=== PATIENT | female | born 1960 | race Caucasian/White ===

== ENCOUNTER 2021-08-09 10:42 | Inpatient (IN) | payer MEDICARE, OTHER ==
--- NOTE | 2021-08-09 11:04 | EDM.PDOC ---
ED HPI GENERAL MEDICAL PROBLEM - General Chief Complaint: Respiratory Problem Time Seen by Provider: 08/09/21 11:00 Source of Information: Reports: Patient History Limitations: Reports: No Limitations - History of Present Illness INITIAL COMMENTS - FREE TEXT/NARRATIVE: This is a 61-year-old female patient that presents to the emergency department with complaints of shortness of breath, weakness, fatigue, and body aches. Patient states that symptoms are very similar to when she had Covid several months ago. Denies nausea or vomiting. States her symptoms began about a week ago. She came up to [place] visiting family for [place]. Denies fever or chills. Denies any sort of chest pain or diaphoresis. - Related Data Allergies Allergy/AdvReac Type Severity Reaction Status Date / Time Penicillins Allergy Itching Verified 08/09/21 10:53 Home Meds: Home Meds Ascorbic Acid [Vitamin C] 2,000 mg PO BID 08/09/21 [History] Aspirin [Aspirin EC] 81 mg PO DAILY 08/09/21 [History] Canagliflozin [Invokana] 100 mg PO DAILY 08/09/21 [History] Cholecalciferol (Vitamin D3) [Vitamin D] 5,000 unit PO Q48H 08/09/21 [History] Cyanocobalamin (Vitamin B12) [Vitamin B12] 1,000 mcg PO DAILY 08/09/21 [History] Insulin Lispro Prot/Lispro [HumaLOG Mix 75-25] 20 unit SUBCUT BID 08/09/21 [History] Loratadine [Claritin] 10 mg PO DAILY 08/09/21 [History] Losartan [Cozaar] 100 mg PO DAILY 08/09/21 [History] Lovastatin 20 mg PO DAILY 08/09/21 [History] Multivitamin 1 each PO DAILY 08/09/21 [History] Mv-Mn/FA/Bl Coh/Isoflav/Jujube [Estroven Menopause Caplet] 1 each PO DAILY 08/09/21 [History] NIFEdipine [Nifedipine ER] 90 mg PO DAILY 08/09/21 [History] Topiramate 100 mg PO DAILY 08/09/21 [History] carvediloL [Carvedilol] 25 mg PO BID 08/09/21 [History] hydrALAZINE [Apresoline] 50 mg PO BID 08/09/21 [History] hydroCHLOROthiazide [Hydrochlorothiazide] 12.5 mg PO Q48H 08/09/21 [History] ED ROS GENERAL - Review of Systems Review Of Systems: See Below Constitutional: Reports: Weakness, Fatigue HEENT: Reports: Sinus Problem (Chronic sinus drainage at night) Respiratory: Reports: Shortness of Breath, Cough. Denies: Wheezing Cardiovascular: Reports: Dyspnea on Exertion. Denies: Chest Pain, Blood Pressure Problem, Lightheadedness Endocrine: Reports: No Symptoms GI/Abdominal: Denies: Abdominal Pain, Nausea, Vomiting : Reports: No Symptoms Musculoskeletal: Reports: No Symptoms Skin: Denies: Cyanosis Neurological: Denies: Confusion, Dizziness, Trouble Speaking Psychiatric: Reports: No Symptoms Hematologic/Lymphatic: Reports: No Symptoms Immunologic: Reports: No Symptoms ED EXAM, GENERAL - Physical Exam Exam: See Below Exam Limited By: No Limitations General Appearance: Alert, WD/WN, No Apparent Distress Ears: Normal External Exam, Hearing Grossly Normal Nose: Normal Inspection, Normal Mucosa Throat/Mouth: Normal Voice, No Airway Compromise Head: Atraumatic, Normocephalic Neck: Normal Inspection, Supple, Non-Tender. No: Lymphadenopathy (L), Lymphadenopathy (R) Respiratory/Chest: No Respiratory Distress, Lungs Clear, Decreased Breath Sounds Cardiovascular: Regular Rate, Rhythm, No Gallop, No Murmur, No Rub GI/Abdominal: Soft, Non-Tender (Female) Exam: Deferred Rectal (Female) Exam: Deferred Back Exam: Normal Inspection Extremities: No Pedal Edema Neurological: Alert, Oriented Psychiatric: Normal Affect, Normal Mood Skin Exam: Warm, Dry, Intact, No Rash Lymphatic: No Adenopathy Course - Vital Signs Last Recorded V/S: Last Vital Signs Temp 97.0 F 08/09/21 10:45 Pulse 56 L 08/09/21 10:45 Resp 16 08/09/21 10:45 BP 133/56 L 08/09/21 10:45 Pulse Ox 96 08/09/21 10:45 - Orders/Labs/Meds Orders: Active Orders 24 hr Category Date Time Status Chest 2V [CR] Stat Exams 08/09/21 10:54 Taken Labs: Laboratory Tests 08/09/21 08/09/21 08/09/21 Range/Units 10:46 11:20 11:20 WBC 10.9 (4.0-11.0) 10^3/uL RBC 3.67 L (4.00-5.50) x10^6/uL Hgb 10.3 L (12.0-16.0) g/dL Hct 32.2 L (37.0-47.0) % MCV 87.7 (83.0-97.0) fL MCH 28.1 (27.0-32.0) pg MCHC 32.0 (32.0-36.0) g/dL RDW Coeff of Roger 15.0 (11.0-15.0) % Plt Count 304 (150-400) 10^3/uL Immature Gran % (Auto) 0.3 (0.0-4.9) % Neut % (Auto) 81.5 H (41-71) % Lymph % (Auto) 8.2 L (24-44) % Solano % (Auto) 6.3 (0-10) % Eos % (Auto) 3.2 (0-6) % Baso % (Auto) 0.5 (0-1) % Neut # (Auto) 8.88 H (1.80-8.00) x10^3/uL Lymph # (Auto) 0.89 (0.60-5.00) 10^3/uL Sol[place] # (Auto) 0.69 (0.00-1.50) 10^3/uL Eos # (Auto) 0.35 (0.00-1.50) 10^3/uL Baso # (Auto) 0.05 (0.00-0.50) 10^3/uL Immature Gran # (Auto) 0.03 (0.00-0.49) 10^3/uL D-Dimer, Quantitative 2.39 H (0.00-0.50) Sodium (136-145) mEq/L Potassium (3.5-5.0) mEq/L Chloride (98-106) mEq/L Carbon Dioxide (21-32) mmol/L BUN (7-18) mg/dL Creatinine (0.6-1.0) mg/dL Est Cr Clr Drug Dosing mL/min Estimated GFR (MDRD) (>=60) mL/min Glucose (75-99) mg/dL Calcium (8.4-10.1) mg/dL Total Bilirubin (0.0-1.0) mg/dL AST (15-37) U/L ALT (12-78) U/L Alkaline Phosphatase (46-116) U/L Troponin I High Sens (<=51) pg/mL NT-Pro-B Natriuret Pep (0-1000) pg/mL Total Protein (6.4-8.2) g/dL Albumin (3.4-5.0) g/dL SARS CoV-2 RNA Rapid KRISS Negative (NEGATIVE) 08/09/21 Range/Units 11:20 WBC (4.0-11.0) 10^3/uL RBC (4.00-5.50) x10^6/uL Hgb (12.0-16.0) g/dL Hct (37.0-47.0) % MCV (83.0-97.0) fL MCH (27.0-32.0) pg MCHC (32.0-36.0) g/dL RDW Coeff of Roger (11.0-15.0) % Plt Count (150-400) 10^3/uL Immature Gran % (Auto) (0.0-4.9) % Neut % (Auto) (41-71) % Lymph % (Auto) (24-44) % [place] % (Auto) (0-10) % Eos % (Auto) (0-6) % Baso % (Auto) (0-1) % Neut # (Auto) (1.80-8.00) x10^3/uL Lymph # (Auto) (0.60-5.00) 10^3/uL [place] # (Auto) (0.00-1.50) 10^3/uL Eos # (Auto) (0.00-1.50) 10^3/uL Baso # (Auto) (0.00-0.50) 10^3/uL Immature Gran # (Auto) (0.00-0.49) 10^3/uL D-Dimer, Quantitative (0.00-0.50) Sodium 140 (136-145) mEq/L Potassium 3.9 (3.5-5.0) mEq/L Chloride 105 (98-106) mEq/L Carbon Dioxide 24 (21-32) mmol/L BUN 94 H* (7-18) mg/dL Creatinine 2.7 H* (0.6-1.0) mg/dL Est Cr Clr Drug Dosing 20.74 mL/min Estimated GFR (MDRD) 18 L (>=60) mL/min Glucose 175 H (75-99) mg/dL Calcium 8.6 (8.4-10.1) mg/dL Total Bilirubin 0.5 (0.0-1.0) mg/dL AST 19 (15-37) U/L ALT 32 (12-78) U/L Alkaline Phosphatase 88 (46-116) U/L Troponin I High Sens 17.3 (<=51) pg/mL NT-Pro-B Natriuret Pep 8229 H (0-1000) pg/mL Total Protein 6.9 (6.4-8.2) g/dL Albumin 2.8 L (3.4-5.0) g/dL SARS CoV-2 RNA Rapid KRISS (NEGATIVE) - Re-Assessments/Exams Free Text/Narrative Re-Assessment/Exam: Patient presented to the emergency department with complaints of shortness of breath, body aches, and weakness. Patient described this as similar to having Covid months ago. Obtained a Covid and influenza swab that are negative. Chest x-ray was complete which was reviewed, no evidence of acute findings. CBC, CMP, CRP, D-Dimer, BNP, and troponin completed. CBC unremarkable. Creatinine 2.7. BNP 8229. D-Dimer 2.39, Troponin 17.3. Discussed findings with patient. Patient likely with CHF. With the D-dimer and creatinine levels being elevated a PE cannot be completely ruled out and unable to perform a CTA of the chest. Patient lives in [place], [place] and wanted to drive back today. Discussion with patient and spouse included option of admission for CHF and prophylactic treatment of unknown PE. Informed that she had the right to sign out AMA and return to [place]. Risk discussed with patient that included possible acute emergency and possible if chose to drive back to [place]. Patient and spouse have chose to remain in [place]. Tertiary hospitals are not able to accept patient. Spoke with Dr. Dixon hospitalist in [facility] and stated she would need to be evaluated in the ER at [facility] if she signed out AMA. Discussed case with hospitalist at [facility] regarding hospital treatment and management. Based on those recommendation patient will be admitted for acute care inpatient telemetry. Will start diaphoresis with 40 mg Lasix IV BID. Will also treat potential PE with IV heparin bolus and drip. Will recheck labs daily monitoring CBC, BMP, Troponin, and BNP. Will monitor closely for any changes. Departure - Departure Time of Disposition: 13:00 Disposition: Admitted As Inpatient 67 Condition: Poor Clinical Impression: SOB (shortness of breath), Exertional dyspnea CHF (congestive heart failure) Qualifiers: Heart failure type: unspecified Heart failure chronicity: unspecified Qualified Code(s): I50.9 - Heart failure, unspecified Chronic kidney disease (CKD) Qualifiers: Chronic kidney disease stage: unspecified stage Qualified Code(s): N18.9 - Chronic kidney disease, unspecified - Discharge Information *PRESCRIPTION DRUG MONITORING PROGRAM REVIEWED*: Not Applicable *COPY OF PRESCRIPTION DRUG MONITORING REPORT IN PATIENT ILYA: Not Applicable Forms: ED Department Discharge Additional Instructions: Admit inpatient telemetry. Sepsis Event Note (ED) - Evaluation Sepsis Screening Result: No Definite Risk - Focused Exam Vital Signs: Vital Signs Temp Pulse Resp BP Pulse Ox 08/09/21 10:45 97.0 F 56 L 16 133/56 L 96 - Problem List Review Problem List Initiated/Reviewed/Updated: Yes - Assessment/Plan Admission H&P: Please use this note as an admission H&P
[2021-08-09] MEDS ORDERED: Ondansetron 4 MG/2 ML SDV IV PRN (14:12)
[2021-08-09] MEDS ORDERED: Acetaminophen 325 MG Tab PO PRN (14:12)
[2021-08-09] MEDS: Furosemide 40 MG/4 ML VIAL IVPUSH SCH ×2 (14:41→19:54)
[2021-08-09] MEDS: Heparin Sodium/0.45% NaCl 500 ML IV SCH (15:04)
[2021-08-09] MEDS ORDERED: Carvedilol 12.5 MG Tab PO SCH (17:30)
[2021-08-09] MEDS: Insulin NPH HUM/REG Insulin HM 100 UNIT/ML 3 ML Vial SQ SCH (17:38)
[2021-08-09] MEDS: hydrALAZINE 25 MG Tab PO SCH (19:54)
[2021-08-09] MEDS ORDERED: Heparin Sodium 5,000 Units/ML Vial IV ONE (23:45)
[2021-08-10] MEDS: Heparin Sodium/0.45% NaCl 500 ML IV SCH ×2 (05:12→21:53)
[2021-08-10] MEDS: Topiramate 100 MG Tab PO SCH (07:40)
[2021-08-10] MEDS: Furosemide 40 MG/4 ML VIAL IVPUSH SCH ×2 (07:40→19:10)
[2021-08-10] MEDS: Aspirin 81 MG Tab.EC PO SCH (07:41)
[2021-08-10] MEDS: hydrALAZINE 25 MG Tab PO SCH ×2 (07:42→19:10)
[2021-08-10] MEDS: Losartan 100 MG Tab PO SCH (07:42)
[2021-08-10] MEDS: Simvastatin 10 MG Tab PO SCH (07:42)
[2021-08-10] MEDS: NIFEdipine 30 MG Tab.ER PO SCH (07:43)
[2021-08-10] MEDS: Insulin NPH HUM/REG Insulin HM 100 UNIT/ML 3 ML Vial SQ SCH ×2 (07:45→17:29)
[2021-08-10] MEDS ORDERED: Non-Formulary Medication 1 Each (Canagliflozin [Invokana] 100 MG Tablet) PO SCH (08:00)
--- NOTE | 2021-08-10 11:12 | PCM.PN ---
- General Info Date of Service: 08/10/21 Admission Dx/Problem (Free Text): Acute on chronic congestive heart failure Elevated D-Dimer with shortness of breath Type II DM Acute on chronic kidney injury\\ Subjective Update: Patient resting comfortably up in recliner. Feels "a bit less short of breath today". Is down 4# today from yesterday. Is voiding well, states up to the bathroom about every 45 minutes. Has not had much for edema, does not feel that has changed today. Appetite is good. Denies cough, fever, nausea or vomiting. Blood sugars have been stable. Has consistently been in marked sinus terrence since admission in the 40s, concern with possible 2nd degree heart block. pat ient unaware if has every had a diagnosis of atrial fib but reports has been told her heart is irregular. Not on any blood thinners. Denies any lightheadedness or dizziness. Blood pressure 160s/60s. Unsure of when last echo. "don't keep track of all that and don't understand all the medical jar jacky". Does admit that she sees a kidney specialist but is unsure what her usual creatinine is. Functional Status: Reports: Pain Controlled, Tolerating Diet, Ambulating - Review of Systems General: Reports: Fatigue. Denies: Fever, Weakness, Malaise HEENT: Denies: Ear Pain, Sinus Congestion, Rhinitis Pulmonary: Reports: Shortness of Breath. Denies: Cough Cardiovascular: Reports: Edema. Denies: Chest Pain, Lightheadedness Gastrointestinal: Denies: Abdominal Pain, Decreased Appetite, Nausea, Vomiting Genitourinary: Reports: Frequency Musculoskeletal: Reports: No Symptoms Skin: Reports: No Symptoms Neurological: Reports: Weakness - Patient Data Vitals - Most Recent: Last Vital Signs Temp 97.9 F 08/10/21 08:00 Pulse 41 L 08/10/21 04:00 Resp 16 08/10/21 08:00 BP 163/66 H 08/10/21 08:00 Pulse Ox 95 08/10/21 08:00 Weight - Most Recent: 314 lb 3.2 oz I&O - Last 24 Hours: Intake & Output 08/09/21 08/10/21 08/10/21 22:59 06:59 14:59 Intake Total 1500 867 Output Total 550 900 Balance 950 -33 Lab Results Last 24 Hours: Laboratory Results - last 24 hr 08/09/21 08/09/21 08/09/21 Range/Units 11:20 11:20 11:20 WBC 10.9 (4.0-11.0) 10^3/uL RBC 3.67 L (4.00-5.50) x10^6/uL Hgb 10.3 L (12.0-16.0) g/dL Hct 32.2 L (37.0-47.0) % MCV 87.7 (83.0-97.0) fL MCH 28.1 (27.0-32.0) pg MCHC 32.0 (32.0-36.0) g/dL RDW Coeff of Roger 15.0 (11.0-15.0) % Plt Count 304 (150-400) 10^3/uL MPV fL Immature Gran % (Auto) 0.3 (0.0-4.9) % Neut % (Auto) 81.5 H (41-71) % Lymph % (Auto) 8.2 L (24-44) % [place] % (Auto) 6.3 (0-10) % Eos % (Auto) 3.2 (0-6) % Baso % (Auto) 0.5 (0-1) % Neut # (Auto) 8.88 H (1.80-8.00) x10^3/uL Lymph # (Auto) 0.89 (0.60-5.00) 10^3/uL [place] # (Auto) 0.69 (0.00-1.50) 10^3/uL Eos # (Auto) 0.35 (0.00-1.50) 10^3/uL Baso # (Auto) 0.05 (0.00-0.50) 10^3/uL Immature Gran # (Auto) 0.03 (0.00-0.49) 10^3/uL APTT (23.2-32.3) SEC D-Dimer, Quantitative 2.39 H (0.00-0.50) Sodium 140 (136-145) mEq/L Potassium 3.9 (3.5-5.0) mEq/L Chloride 105 (98-106) mEq/L Carbon Dioxide 24 (21-32) mmol/L BUN 94 H* (7-18) mg/dL Creatinine 2.7 H* (0.6-1.0) mg/dL Est Cr Clr Drug Dosing 20.74 mL/min Estimated GFR (MDRD) 18 L (>=60) mL/min Glucose 175 H (75-99) mg/dL POC Glucose (75-105) mg/dL Calcium 8.6 (8.4-10.1) mg/dL Total Bilirubin 0.5 (0.0-1.0) mg/dL AST 19 (15-37) U/L ALT 32 (12-78) U/L Alkaline Phosphatase 88 (46-116) U/L Troponin I High Sens 17.3 (<=51) pg/mL NT-Pro-B Natriuret Pep 8229 H (0-1000) pg/mL Total Protein 6.9 (6.4-8.2) g/dL Albumin 2.8 L (3.4-5.0) g/dL 08/09/21 08/09/21 08/09/21 Range/Units 14:12 14:12 17:16 WBC (4.0-11.0) 10^3/uL RBC (4.00-5.50) x10^6/uL Hgb (12.0-16.0) g/dL Hct (37.0-47.0) % MCV (83.0-97.0) fL MCH (27.0-32.0) pg MCHC (32.0-36.0) g/dL RDW Coeff of Roger (11.0-15.0) % Plt Count (150-400) 10^3/uL MPV fL Immature Gran % (Auto) (0.0-4.9) % Neut % (Auto) (41-71) % Lymph % (Auto) (24-44) % [place] % (Auto) (0-10) % Eos % (Auto) (0-6) % Baso % (Auto) (0-1) % Neut # (Auto) (1.80-8.00) x10^3/uL Lymph # (Auto) (0.60-5.00) 10^3/uL [place] # (Auto) (0.00-1.50) 10^3/uL Eos # (Auto) (0.00-1.50) 10^3/uL Baso # (Auto) (0.00-0.50) 10^3/uL Immature Gran # (Auto) (0.00-0.49) 10^3/uL APTT 25.6 (23.2-32.3) SEC D-Dimer, Quantitative (0.00-0.50) Sodium (136-145) mEq/L Potassium (3.5-5.0) mEq/L Chloride (98-106) mEq/L Carbon Dioxide (21-32) mmol/L BUN (7-18) mg/dL Creatinine (0.6-1.0) mg/dL Est Cr Clr Drug Dosing mL/min Estimated GFR (MDRD) (>=60) mL/min Glucose (75-99) mg/dL POC Glucose 120 H (75-105) mg/dL Calcium (8.4-10.1) mg/dL Total Bilirubin (0.0-1.0) mg/dL AST (15-37) U/L ALT (12-78) U/L Alkaline Phosphatase (46-116) U/L Troponin I High Sens 16.7 (<=51) pg/mL NT-Pro-B Natriuret Pep (0-1000) pg/mL Total Protein (6.4-8.2) g/dL Albumin (3.4-5.0) g/dL 08/09/21 08/09/21 08/10/21 Range/Units 21:00 23:53 03:00 WBC (4.0-11.0) 10^3/uL RBC (4.00-5.50) x10^6/uL Hgb (12.0-16.0) g/dL Hct (37.0-47.0) % MCV (83.0-97.0) fL MCH (27.0-32.0) pg MCHC (32.0-36.0) g/dL RDW Coeff of Roger (11.0-15.0) % Plt Count (150-400) 10^3/uL MPV fL Immature Gran % (Auto) (0.0-4.9) % Neut % (Auto) (41-71) % Lymph % (Auto) (24-44) % [place] % (Auto) (0-10) % Eos % (Auto) (0-6) % Baso % (Auto) (0-1) % Neut # (Auto) (1.80-8.00) x10^3/uL Lymph # (Auto) (0.60-5.00) 10^3/uL [place] # (Auto) (0.00-1.50) 10^3/uL Eos # (Auto) (0.00-1.50) 10^3/uL Baso # (Auto) (0.00-0.50) 10^3/uL Immature Gran # (Auto) (0.00-0.49) 10^3/uL APTT 34.4 H 42.6 H (23.2-32.3) SEC D-Dimer, Quantitative (0.00-0.50) Sodium (136-145) mEq/L Potassium (3.5-5.0) mEq/L Chloride (98-106) mEq/L Carbon Dioxide (21-32) mmol/L BUN (7-18) mg/dL Creatinine (0.6-1.0) mg/dL Est Cr Clr Drug Dosing mL/min Estimated GFR (MDRD) (>=60) mL/min Glucose (75-99) mg/dL POC Glucose 108 H (75-105) mg/dL Calcium (8.4-10.1) mg/dL Total Bilirubin (0.0-1.0) mg/dL AST (15-37) U/L ALT (12-78) U/L Alkaline Phosphatase (46-116) U/L Troponin I High Sens (<=51) pg/mL NT-Pro-B Natriuret Pep (0-1000) pg/mL Total Protein (6.4-8.2) g/dL Albumin (3.4-5.0) g/dL 08/10/21 08/10/21 08/10/21 Range/Units 07:39 09:28 09:28 WBC 9.4 (4.0-11.0) 10^3/uL RBC 3.77 L (4.00-5.50) x10^6/uL Hgb 10.6 L (12.0-16.0) g/dL Hct 33.1 L (37.0-47.0) % MCV 87.8 (83.0-97.0) fL MCH 28.1 (27.0-32.0) pg MCHC 32.0 (32.0-36.0) g/dL RDW Coeff of Roger 15.1 H (11.0-15.0) % Plt Count 350 (150-400) 10^3/uL MPV 9.1 fL Immature Gran % (Auto) (0.0-4.9) % Neut % (Auto) (41-71) % Lymph % (Auto) (24-44) % [place] % (Auto) (0-10) % Eos % (Auto) (0-6) % Baso % (Auto) (0-1) % Neut # (Auto) (1.80-8.00) x10^3/uL Lymph # (Auto) (0.60-5.00) 10^3/uL [place] # (Auto) (0.00-1.50) 10^3/uL Eos # (Auto) (0.00-1.50) 10^3/uL Baso # (Auto) (0.00-0.50) 10^3/uL Immature Gran # (Auto) (0.00-0.49) 10^3/uL APTT (23.2-32.3) SEC D-Dimer, Quantitative (0.00-0.50) Sodium 142 (136-145) mEq/L Potassium 3.6 (3.5-5.0) mEq/L Chloride 106 (98-106) mEq/L Carbon Dioxide 26 (21-32) mmol/L BUN 86 H* (7-18) mg/dL Creatinine 2.4 H (0.6-1.0) mg/dL Est Cr Clr Drug Dosing 23.34 mL/min Estimated GFR (MDRD) 21 L (>=60) mL/min Glucose 138 H (75-99) mg/dL POC Glucose 99 (75-105) mg/dL Calcium 8.6 (8.4-10.1) mg/dL Total Bilirubin (0.0-1.0) mg/dL AST (15-37) U/L ALT (12-78) U/L Alkaline Phosphatase (46-116) U/L Troponin I High Sens (<=51) pg/mL NT-Pro-B Natriuret Pep 6712 H (0-1000) pg/mL Total Protein (6.4-8.2) g/dL Albumin (3.4-5.0) g/dL 08/10/21 Range/Units 09:28 WBC (4.0-11.0) 10^3/uL RBC (4.00-5.50) x10^6/uL Hgb (12.0-16.0) g/dL Hct (37.0-47.0) % MCV (83.0-97.0) fL MCH (27.0-32.0) pg MCHC (32.0-36.0) g/dL RDW Coeff of Roger (11.0-15.0) % Plt Count (150-400) 10^3/uL MPV fL Immature Gran % (Auto) (0.0-4.9) % Neut % (Auto) (41-71) % Lymph % (Auto) (24-44) % [place] % (Auto) (0-10) % Eos % (Auto) (0-6) % Baso % (Auto) (0-1) % Neut # (Auto) (1.80-8.00) x10^3/uL Lymph # (Auto) (0.60-5.00) 10^3/uL [place] # (Auto) (0.00-1.50) 10^3/uL Eos # (Auto) (0.00-1.50) 10^3/uL Baso # (Auto) (0.00-0.50) 10^3/uL Immature Gran # (Auto) (0.00-0.49) 10^3/uL APTT 43.2 H (23.2-32.3) SEC D-Dimer, Quantitative (0.00-0.50) Sodium (136-145) mEq/L Potassium (3.5-5.0) mEq/L Chloride (98-106) mEq/L Carbon Dioxide (21-32) mmol/L BUN (7-18) mg/dL Creatinine (0.6-1.0) mg/dL Est Cr Clr Drug Dosing mL/min Estimated GFR (MDRD) (>=60) mL/min Glucose (75-99) mg/dL POC Glucose (75-105) mg/dL Calcium (8.4-10.1) mg/dL Total Bilirubin (0.0-1.0) mg/dL AST (15-37) U/L ALT (12-78) U/L Alkaline Phosphatase (46-116) U/L Troponin I High Sens (<=51) pg/mL NT-Pro-B Natriuret Pep (0-1000) pg/mL Total Protein (6.4-8.2) g/dL Albumin (3.4-5.0) g/dL Nelson Results Last 24 Hours: Microbiology 08/09/21 10:47 Influenza Type A Antigen Screen - Final Nasopharyngeal Swab NEGATIVE INFLUENZA A VIRUS AG REFERENCE RANGE: NEGATIVE Influenza Type B Antigen Screen - Final NEGATIVE INFLUENZA B VIRUS AG REFERENCE RANGE: NEGATIVE Med Orders - Current: Current Medications Acetaminophen (Acetaminophen 325 Mg Tab) 650 mg PO Q4H PRN PRN Reason: Pain (Mild 1-3)/fever Aspirin (Aspirin 81 Mg Tab.Ec) 81 mg PO DAILY [facility] Last Admin: 08/10/21 07:41 Dose: 81 mg Documented by: Carvedilol (Carvedilol 12.5 Mg Tab) 12.5 mg PO BIDAC [facility] Last Admin: 08/09/21 17:41 Dose: Not Given Documented by: Furosemide (Furosemide 40 Mg/4 Ml Vial) 40 mg IVPUSH BID [facility] Last Admin: 08/10/21 07:40 Dose: 40 mg Documented by: Hydralazine HCl (Hydralazine 25 Mg Tab) 50 mg PO BID [facility] Last Admin: 08/10/21 07:42 Dose: 50 mg Documented by: Heparin Sodium/Sodium Chloride (Heparin 25,000 Units In 1/2 Ns 500 Ml) 500 mls @ 26 mls/hr IV TITRATE [facility]; Protocol Last Admin: 08/10/21 05:12 Dose: 32 mls/hr Documented by: Insulin NPH Beef/Pork (Insulin Nph Hum/Reg Insulin Hm 100 Unit/Ml 3 Ml Vial) 20 unit SQ 0800,1730 [facility] Last Admin: 08/10/21 07:45 Dose: 20 unit Documented by: Losartan Potassium (Losartan 100 Mg Tab) 100 mg PO DAILY [facility] Last Admin: 08/10/21 07:42 Dose: 100 mg Documented by: Nifedipine (Nifedipine 30 Mg Tab.Er) 90 mg PO DAILY [facility] Last Admin: 08/10/21 07:43 Dose: 90 mg Documented by: Non-Formulary Medication (Canagliflozin [Invokana]) 100 mg PO DAILY [facility] Ondansetron HCl (Ondansetron 4 Mg/2 Ml Sdv) 4 mg IV Q6H PRN PRN Reason: Nausea/Vomiting Simvastatin (Simvastatin 10 Mg Tab) 10 mg PO DAILY [facility] Last Admin: 08/10/21 07:42 Dose: 10 mg Documented by: Topiramate (Topiramate 100 Mg Tab) 100 mg PO DAILY [facility] Last Admin: 08/10/21 07:40 Dose: 100 mg Documented by: Discontinued Medications Heparin Sodium (Porcine) (Heparin Sodium 5,000 Units/Ml Vial) 1,500 units IV ONETIME ONE Stop: 08/09/21 23:46 Last Admin: 08/10/21 00:52 Dose: Not Given Documented by: - Exam General: Alert, Oriented, Cooperative HEENT: Mucous Membr. 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, see pictures) Neurological: No New Focal Deficit - Patient Data Lab Results Last 24 hrs: Laboratory Results - last 24 hr 08/09/21 08/09/21 08/09/21 Range/Units 11:20 11:20 11:20 WBC 10.9 (4.0-11.0) 10^3/uL RBC 3.67 L (4.00-5.50) x10^6/uL Hgb 10.3 L (12.0-16.0) g/dL Hct 32.2 L (37.0-47.0) % MCV 87.7 (83.0-97.0) fL MCH 28.1 (27.0-32.0) pg MCHC 32.0 (32.0-36.0) g/dL RDW Coeff of Roger 15.0 (11.0-15.0) % Plt Count 304 (150-400) 10^3/uL MPV fL Immature Gran % (Auto) 0.3 (0.0-4.9) % Neut % (Auto) 81.5 H (41-71) % Lymph % (Auto) 8.2 L (24-44) % [place] % (Auto) 6.3 (0-10) % Eos % (Auto) 3.2 (0-6) % Baso % (Auto) 0.5 (0-1) % Neut # (Auto) 8.88 H (1.80-8.00) x10^3/uL Lymph # (Auto) 0.89 (0.60-5.00) 10^3/uL [place] # (Auto) 0.69 (0.00-1.50) 10^3/uL Eos # (Auto) 0.35 (0.00-1.50) 10^3/uL Baso # (Auto) 0.05 (0.00-0.50) 10^3/uL Immature Gran # (Auto) 0.03 (0.00-0.49) 10^3/uL APTT (23.2-32.3) SEC D-Dimer, Quantitative 2.39 H (0.00-0.50) Sodium 140 (136-145) mEq/L Potassium 3.9 (3.5-5.0) mEq/L Chloride 105 (98-106) mEq/L Carbon Dioxide 24 (21-32) mmol/L BUN 94 H* (7-18) mg/dL Creatinine 2.7 H* (0.6-1.0) mg/dL Est Cr Clr Drug Dosing 20.74 mL/min Estimated GFR (MDRD) 18 L (>=60) mL/min Glucose 175 H (75-99) mg/dL POC Glucose (75-105) mg/dL Calcium 8.6 (8.4-10.1) mg/dL Total Bilirubin 0.5 (0.0-1.0) mg/dL AST 19 (15-37) U/L ALT 32 (12-78) U/L Alkaline Phosphatase 88 (46-116) U/L Troponin I High Sens 17.3 (<=51) pg/mL NT-Pro-B Natriuret Pep 8229 H (0-1000) pg/mL Total Protein 6.9 (6.4-8.2) g/dL Albumin 2.8 L (3.4-5.0) g/dL 08/09/21 08/09/21 08/09/21 Range/Units 14:12 14:12 17:16 WBC (4.0-11.0) 10^3/uL RBC (4.00-5.50) x10^6/uL Hgb (12.0-16.0) g/dL Hct (37.0-47.0) % MCV (83.0-97.0) fL MCH (27.0-32.0) pg MCHC (32.0-36.0) g/dL RDW Coeff of Roger (11.0-15.0) % Plt Count (150-400) 10^3/uL MPV fL Immature Gran % (Auto) (0.0-4.9) % Neut % (Auto) (41-71) % Lymph % (Auto) (24-44) % [place] % (Auto) (0-10) % Eos % (Auto) (0-6) % Baso % (Auto) (0-1) % Neut # (Auto) (1.80-8.00) x10^3/uL Lymph # (Auto) (0.60-5.00) 10^3/uL [place] # (Auto) (0.00-1.50) 10^3/uL Eos # (Auto) (0.00-1.50) 10^3/uL Baso # (Auto) (0.00-0.50) 10^3/uL Immature Gran # (Auto) (0.00-0.49) 10^3/uL APTT 25.6 (23.2-32.3) SEC D-Dimer, Quantitative (0.00-0.50) Sodium (136-145) mEq/L Potassium (3.5-5.0) mEq/L Chloride (98-106) mEq/L Carbon Dioxide (21-32) mmol/L BUN (7-18) mg/dL Creatinine (0.6-1.0) mg/dL Est Cr Clr Drug Dosing mL/min Estimated GFR (MDRD) (>=60) mL/min Glucose (75-99) mg/dL POC Glucose 120 H (75-105) mg/dL Calcium (8.4-10.1) mg/dL Total Bilirubin (0.0-1.0) mg/dL AST (15-37) U/L ALT (12-78) U/L Alkaline Phosphatase (46-116) U/L Troponin I High Sens 16.7 (<=51) pg/mL NT-Pro-B Natriuret Pep (0-1000) pg/mL Total Protein (6.4-8.2) g/dL Albumin (3.4-5.0) g/dL 08/09/21 08/09/21 08/10/21 Range/Units 21:00 23:53 03:00 WBC (4.0-11.0) 10^3/uL RBC (4.00-5.50) x10^6/uL Hgb (12.0-16.0) g/dL Hct (37.0-47.0) % MCV (83.0-97.0) fL MCH (27.0-32.0) pg MCHC (32.0-36.0) g/dL RDW Coeff of Roger (11.0-15.0) % Plt Count (150-400) 10^3/uL MPV fL Immature Gran % (Auto) (0.0-4.9) % Neut % (Auto) (41-71) % Lymph % (Auto) (24-44) % [place] % (Auto) (0-10) % Eos % (Auto) (0-6) % Baso % (Auto) (0-1) % Neut # (Auto) (1.80-8.00) x10^3/uL Lymph # (Auto) (0.60-5.00) 10^3/uL [place] # (Auto) (0.00-1.50) 10^3/uL Eos # (Auto) (0.00-1.50) 10^3/uL Baso # (Auto) (0.00-0.50) 10^3/uL Immature Gran # (Auto) (0.00-0.49) 10^3/uL APTT 34.4 H 42.6 H (23.2-32.3) SEC D-Dimer, Quantitative (0.00-0.50) Sodium (136-145) mEq/L Potassium (3.5-5.0) mEq/L Chloride (98-106) mEq/L Carbon Dioxide (21-32) mmol/L BUN (7-18) mg/dL Creatinine (0.6-1.0) mg/dL Est Cr Clr Drug Dosing mL/min Estimated GFR (MDRD) (>=60) mL/min Glucose (75-99) mg/dL POC Glucose 108 H (75-105) mg/dL Calcium (8.4-10.1) mg/dL Total Bilirubin (0.0-1.0) mg/dL AST (15-37) U/L ALT (12-78) U/L Alkaline Phosphatase (46-116) U/L Troponin I High Sens (<=51) pg/mL NT-Pro-B Natriuret Pep (0-1000) pg/mL Total Protein (6.4-8.2) g/dL Albumin (3.4-5.0) g/dL 08/10/21 08/10/21 08/10/21 Range/Units 07:39 09:28 09:28 WBC 9.4 (4.0-11.0) 10^3/uL RBC 3.77 L (4.00-5.50) x10^6/uL Hgb 10.6 L (12.0-16.0) g/dL Hct 33.1 L (37.0-47.0) % MCV 87.8 (83.0-97.0) fL MCH 28.1 (27.0-32.0) pg MCHC 32.0 (32.0-36.0) g/dL RDW Coeff of Roger 15.1 H (11.0-15.0) % Plt Count 350 (150-400) 10^3/uL MPV 9.1 fL Immature Gran % (Auto) (0.0-4.9) % Neut % (Auto) (41-71) % Lymph % (Auto) (24-44) % [place] % (Auto) (0-10) % Eos % (Auto) (0-6) % Baso % (Auto) (0-1) % Neut # (Auto) (1.80-8.00) x10^3/uL Lymph # (Auto) (0.60-5.00) 10^3/uL [place] # (Auto) (0.00-1.50) 10^3/uL Eos # (Auto) (0.00-1.50) 10^3/uL Baso # (Auto) (0.00-0.50) 10^3/uL Immature Gran # (Auto) (0.00-0.49) 10^3/uL APTT (23.2-32.3) SEC D-Dimer, Quantitative (0.00-0.50) Sodium 142 (136-145) mEq/L Potassium 3.6 (3.5-5.0) mEq/L Chloride 106 (98-106) mEq/L Carbon Dioxide 26 (21-32) mmol/L BUN 86 H* (7-18) mg/dL Creatinine 2.4 H (0.6-1.0) mg/dL Est Cr Clr Drug Dosing 23.34 mL/min Estimated GFR (MDRD) 21 L (>=60) mL/min Glucose 138 H (75-99) mg/dL POC Glucose 99 (75-105) mg/dL Calcium 8.6 (8.4-10.1) mg/dL Total Bilirubin (0.0-1.0) mg/dL AST (15-37) U/L ALT (12-78) U/L Alkaline Phosphatase (46-116) U/L Troponin I High Sens (<=51) pg/mL NT-Pro-B Natriuret Pep 6712 H (0-1000) pg/mL Total Protein (6.4-8.2) g/dL Albumin (3.4-5.0) g/dL 08/10/21 Range/Units 09:28 WBC (4.0-11.0) 10^3/uL RBC (4.00-5.50) x10^6/uL Hgb (12.0-16.0) g/dL Hct (37.0-47.0) % MCV (83.0-97.0) fL MCH (27.0-32.0) pg MCHC (32.0-36.0) g/dL RDW Coeff of Roger (11.0-15.0) % Plt Count (150-400) 10^3/uL MPV fL Immature Gran % (Auto) (0.0-4.9) % Neut % (Auto) (41-71) % Lymph % (Auto) (24-44) % [place] % (Auto) (0-10) % Eos % (Auto) (0-6) % Baso % (Auto) (0-1) % Neut # (Auto) (1.80-8.00) x10^3/uL Lymph # (Auto) (0.60-5.00) 10^3/uL [place] # (Auto) (0.00-1.50) 10^3/uL Eos # (Auto) (0.00-1.50) 10^3/uL Baso # (Auto) (0.00-0.50) 10^3/uL Immature Gran # (Auto) (0.00-0.49) 10^3/uL APTT 43.2 H (23.2-32.3) SEC D-Dimer, Quantitative (0.00-0.50) Sodium (136-145) mEq/L Potassium (3.5-5.0) mEq/L Chloride (98-106) mEq/L Carbon Dioxide (21-32) mmol/L BUN (7-18) mg/dL Creatinine (0.6-1.0) mg/dL Est Cr Clr Drug Dosing mL/min Estimated GFR (MDRD) (>=60) mL/min Glucose (75-99) mg/dL POC Glucose (75-105) mg/dL Calcium (8.4-10.1) mg/dL Total Bilirubin (0.0-1.0) mg/dL AST (15-37) U/L ALT (12-78) U/L Alkaline Phosphatase (46-116) U/L Troponin I High Sens (<=51) pg/mL NT-Pro-B Natriuret Pep (0-1000) pg/mL Total Protein (6.4-8.2) g/dL Albumin (3.4-5.0) g/dL Result Diagrams: 08/10/21 09:28 08/10/21 09:28 Nelson Results Last 24 hrs: Microbiology 08/09/21 10:47 Influenza Type A Antigen Screen - Final Nasopharyngeal Swab NEGATIVE INFLUENZA A VIRUS AG REFERENCE RANGE: NEGATIVE Influenza Type B Antigen Screen - Final NEGATIVE INFLUENZA B VIRUS AG REFERENCE RANGE: NEGATIVE Sepsis Event Note - Evaluation Sepsis Screening Result: No Definite Risk - Focused Exam Vital Signs: Vital Signs Temp Pulse Resp BP BP Pulse Ox 08/10/21 08:00 97.9 F 16 163/66 H 95 08/10/21 07:43 163/66 H 08/10/21 07:42 163/66 H 08/10/21 04:00 97.2 F 41 L 18 139/55 L 95 08/10/21 00:00 97.3 F 48 L 18 109/56 L 97 - Problem List & Annotations (1) Type II diabetes mellitus SNOMED Code(s): 87224071 Code(s): E11.9 - TYPE 2 DIABETES MELLITUS WITHOUT COMPLICATIONS Status: Acute Priority: High Current Visit: Yes (2) CHF (congestive heart failure) SNOMED Code(s): 19540537 Code(s): I50.9 - HEART FAILURE, UNSPECIFIED Status: Acute Priority: High Current Visit: Yes Qualifiers: Heart failure type: unspecified Heart failure chronicity: unspecified Qualified Code(s): I50.9 - Heart failure, unspecified (3) Chronic kidney disease (CKD) SNOMED Code(s): 322467695 Code(s): N18.9 - CHRONIC KIDNEY DISEASE, UNSPECIFIED Status: Acute Priority: High Current Visit: Yes Qualifiers: Chronic kidney disease stage: unspecified stage Qualified Code(s): N18.9 - Chronic kidney disease, unspecified - Problem List Review Problem List Initiated/Reviewed/Updated: Yes - My Orders Last 24 Hours: My Active Orders 08/09/21 10:54 Chest 2V [CR] Stat - Assessment Assessment:: Acute on chronic CHF Acute on chronic kidney injury Type 2 DM - Plan Plan:: Patient resting comfortably today. Feeling better. Labs are somewhat improved, BUN 86 from 94 today. Creatinine down to 2.4 from 2.7. ProBNP 8229 yesterday, today 6712. CBC stable. heart rate remains low in the 40s, coreg on hold. Blood pressure and blood sugars stable today. Is down 4#. Will continue with coverage with heparin drip for possible PE and atrial fib. Lasix 40 mg IV, repeat labs tomorrow. Obtain echo on Thursday if needed.
[2021-08-11] MEDS: Furosemide 40 MG/4 ML VIAL IVPUSH SCH (07:35)
[2021-08-11] MEDS: Simvastatin 10 MG Tab PO SCH (07:36)
[2021-08-11] MEDS: Topiramate 100 MG Tab PO SCH (07:36)
[2021-08-11] MEDS: Aspirin 81 MG Tab.EC PO SCH (07:36)
[2021-08-11] MEDS: Insulin NPH HUM/REG Insulin HM 100 UNIT/ML 3 ML Vial SQ SCH (07:40)
[2021-08-11] MEDS: NIFEdipine 30 MG Tab.ER PO SCH (07:41)
[2021-08-11] MEDS: hydrALAZINE 25 MG Tab PO SCH (07:42)
[2021-08-11] MEDS: Losartan 100 MG Tab PO SCH (07:42)
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
[2021-08-11] MEDS ORDERED: Furosemide 40 MG Tab PO ONE (10:28)
[2021-08-11] MEDS ORDERED: Apixaban 5 MG Tab PO ONE (10:28)
== END 2021-08-11 11:03 | disposition home or self-care (01) | DRG 291 ==
LOC: CC.ED 10:42 → CC.MS 12:50 → UNDOADMIN 12:50 → CC.MS 13:31 → UNDODISIN 08-11 11:03
PROVIDERS: ADMIT Nurse Practitioner Family; ATTEND Family Medicine
DX: I50.9 Heart failure, unspecified (principal); I26.99 Other pulmonary embolism without acute cor pulmonale; N17.9 Acute kidney failure, unspecified; N18.9 Chronic kidney disease, unspecified; Z20.822 Contact with and (suspected) exposure to COVID-19; E11.22 Type 2 diabetes mellitus with diabetic chronic kidney disease; Z88.0 Allergy status to penicillin; Z79.82 Long term (current) use of aspirin; Z79.4 Long term (current) use of insulin; Z79.899 Other long term (current) drug therapy
CPT/HCPCS: 36415; 71046; 80048; 80053; 82947; 83880; 84484; 85025; 85027; 85379; 85730; 87804; 93005; 99285-25; A9270-GY; J1644; J1815-GY; J1940; U0002